=== PATIENT | male | born 1985 | race Caucasian/White ===

== ENCOUNTER 2020-08-25 08:02 | Emergency (ER) | payer MEDICAID ==
[~2020-08-25] VITALS: Ht 175.3 cm; Wt 106.8 kg
[~2020-08-25 08:02] MED LIST: ASPI-1264 PO; IBUP-1984 PO
--- NOTE | 2020-08-25 08:18 | NUR ---
Patient arrives with , informed patient and during triage process that we had a no visitor policy. became upset and stated they would go to [facility]. Instructed that [facility] had same policy and she stated then they would go to [facility].
== END 2020-08-25 08:20 | disposition left against medical advice (07) ==
LOC: ER 08:02
DX: R31.9 Hematuria, unspecified (principal); Z53.21 Procedure and treatment not carried out due to patient leaving prior to being seen by health care provider

== ENCOUNTER 2021-06-27 08:49 | Emergency (ER) | payer MEDICAID ==
[~2021-06-27] VITALS: Ht 170.2 cm; Wt 111.4 kg
[2021-06-27 09:09] VITALS: BP 158/103
== END 2021-06-27 11:29 | disposition home or self-care (01) ==
LOC: ER 08:49
DX: Z20.822 Contact with and (suspected) exposure to COVID-19 (principal); R51.9 Headache, unspecified; R53.83 Other fatigue; Z86.14 Personal history of Methicillin resistant Staphylococcus aureus infection; Z72.89 Other problems related to lifestyle; Z79.82 Long term (current) use of aspirin; Z79.899 Other long term (current) drug therapy
CPT/HCPCS: 87635; 99283; C9803

== ENCOUNTER 2021-07-12 08:44 | Emergency (ER) | payer MEDICAID ==
[~2021-07-12] VITALS: Ht 172.7 cm; Wt 109.5 kg
[2021-07-12 08:58] VITALS: BP 132/82
[2021-07-12] MEDS ORDERED: ALBU8.5H17 IH (09:23)
[2021-07-12] MEDS ORDERED: BENZ-16 PO (09:23)
== END 2021-07-12 10:28 | disposition home or self-care (01) ==
LOC: ER 08:45
DX: U07.1 COVID-19 (principal); J45.909 Unspecified asthma, uncomplicated; Z79.82 Long term (current) use of aspirin; Z79.899 Other long term (current) drug therapy; Z86.14 Personal history of Methicillin resistant Staphylococcus aureus infection; Z72.89 Other problems related to lifestyle; Z87.891 Personal history of nicotine dependence
CPT/HCPCS: 87635; 99283; C9803

== ENCOUNTER 2021-07-21 13:57 | Emergency (ER) | payer MEDICAID ==
[~2021-07-21] VITALS: Ht 180.3 cm; Wt 91.0 kg
[~2021-07-21 13:57] MED LIST changes: +ALBU8.5H17 IH; +BENZ-16 PO
[2021-07-21 14:19] VITALS: BP 121/83
--- NOTE | 2021-07-21 14:20 | NUR ---
Pt given and understands d/c instructions. Ambulatory with a steady gait.
== END 2021-07-21 14:20 | disposition home or self-care (01) ==
LOC: ER 13:58
DX: Z20.822 Contact with and (suspected) exposure to COVID-19 (principal)
CPT/HCPCS: 99281

== ENCOUNTER 2021-09-15 19:05 | Emergency (ER) | payer MEDICAID ==
[~2021-09-15] VITALS: Ht 170.2 cm; Wt 110.0 kg
[~2021-09-15 19:05] MED LIST changes: -BENZ-16 PO
[2021-09-15 19:39] VITALS: BP 115/85
== END 2021-09-15 23:58 | disposition home or self-care (01) ==
LOC: ER 19:05
DX: K42.9 Umbilical hernia without obstruction or gangrene (principal); J45.909 Unspecified asthma, uncomplicated; Z86.14 Personal history of Methicillin resistant Staphylococcus aureus infection; Z79.82 Long term (current) use of aspirin
CPT/HCPCS: 76700; 99284